=== PATIENT | female | born 2000 | race Two or more races ===

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

== ENCOUNTER 2019-03-25 13:49 | Emergency (ER) | payer OTHER ==
[~2019-03-25] VITALS: Ht 154.9 cm; Wt 47.6 kg
== END 2019-03-25 18:04 | disposition home or self-care (01) ==
LOC: ER 13:49
DX: M54.5 Low back pain (principal); M94.0 Chondrocostal junction syndrome [Tietze]

== ENCOUNTER 2024-02-12 17:31 | Emergency (ER) | payer OTHER ==
[~2024-02-12] VITALS: Ht 154.9 cm; Wt 72.6 kg
[2024-02-12] MEDS ORDERED: KETOROLAC TROMETHAMINE 30 MG VIAL IM STA (20:42)
== END 2024-02-12 20:51 | disposition home or self-care (01) ==
LOC: ER 17:32
DX: R07.89 Other chest pain (principal); Z88.0 Allergy status to penicillin

== ENCOUNTER 2024-02-28 06:53 | Outpatient (CLI) | payer OTHER | END 2024-02-28 15:01 | disposition home or self-care (01) | LOC: TOM 06:53 | DX: E28.1 Androgen excess (principal) ==

== ENCOUNTER 2024-03-16 23:42 | Emergency (ER) | payer OTHER ==
[~2024-03-16] VITALS: Ht 154.9 cm; Wt 68.9 kg
[2024-03-17] MEDS ORDERED: METOCLOPRAMIDE HCL 5 MG/ML VIAL IM STA (00:34)
[2024-03-17] MEDS ORDERED: KETOROLAC TROMETHAMINE 30 MG VIAL IV STA (00:35)
[2024-03-17] MEDS ORDERED: FAMOtidine 10 MG/ML (4ML VIAL) IV PUSH STA (00:36)
[2024-03-17] MEDS ORDERED: HYOSCYAMINE SULFATE 0.125 MG TAB.SUBL SL ONE (00:45)
== END 2024-03-17 01:11 | disposition home or self-care (01) ==
LOC: ER 23:44
DX: K21.9 Gastro-esophageal reflux disease without esophagitis (principal); K29.70 Gastritis, unspecified, without bleeding; R11.10 Vomiting, unspecified; Z88.0 Allergy status to penicillin

== ENCOUNTER 2024-03-28 21:36 | Emergency (ER) | payer OTHER ==
[~2024-03-28] VITALS: Ht 154.9 cm; Wt 68.0 kg
[2024-03-29] MEDS ORDERED: DIPHENHYDRAMINE HCL 12.5 MG/5 ML BLIST.PACK PO STA (01:08)
[2024-03-29] MEDS ORDERED: GUAIFENESIN 200 MG/10 ML BLIST.PACK PO STA (01:08)
[2024-03-29] MEDS ORDERED: ACETAMINOPHEN 500 MG GEL..CAP PO STA (01:08)
[2024-03-29 01:36] LABS: PH,URINE 5.5 (5.0-8.0); URINE APPEARANCE Clear; URINE BILIRRUBIN Negative (NEGATIVE); URINE BLOOD Trace; URINE COLOR Yellow; URINE GLUCOSE Negative (NEGATIVE); URINE KETONE Trace (NEGATIVE); URINE LEUKOCYTE Negative; URINE NITRATE Negative; URINE PROTEIN Negative (NEGATIVE)
[2024-03-29 01:40] LABS: URINE BACTERIA 3033.8 uL (0.0-1933); URINE EPITHELIAL CELLS 54.1 uL (0.0-38.8); URINE RBC 14.9 uL (0.0-20.8); URINE WBC 24.8 uL (0.0-23.2)
[2024-03-29 01:57] LABS: HEMATOCRIT 38.1 % (36.0-45.00); HEMOGLOBIN 13.2 g/dL (12.0-15.00); MEAN CELL VOLUME 83.4 fL (80.00-100.00); MEAN CORPUSCULAR HEMOGLOBIN 28.8 pg (27.00-32.0); MEAN CORPUSCULAR HGB CONC 34.6 g/dl (32.0-36.0); PLATELET COUNT 281 K/uL (150-450); RED BLOOD COUNT 4.57 M/uL (4.00-6.00); RED CELL DISTRIBUTION WIDTH 13.1 % (11.5-14.5)
[2024-03-29] MEDS ORDERED: OSEL75CA PO (05:08)
[2024-03-29] MEDS ORDERED: CIPRO250 MG PO (05:08)
[2024-03-29] MEDS ORDERED: PHENAGIL TABLE1 EACH PO (05:08)
[2024-03-29] MEDS ORDERED: ZYNCOF 20-400120 ML PO (05:08)
[2024-03-29] MEDS ORDERED: ALBUTEROL2.5 MG/3 M IH ×2 (05:12→05:13)
== END 2024-03-29 05:16 ==
LOC: ER 21:38
PROVIDERS: General Practice
DX: R30.0 Dysuria (principal); R53.81 Other malaise; Z20.822 Contact with and (suspected) exposure to COVID-19; Z88.0 Allergy status to penicillin

== ENCOUNTER 2024-05-31 07:38 | Outpatient (CLI) | payer OTHER ==
[~2024-05-31 07:38] MED LIST changes: +ALBUTEROL2.5 MG/3 M IH; +CIPRO250 MG PO; +OSEL75CA PO; +PHENAGIL TABLE1 EACH PO; +ZYNCOF 20-400120 ML PO
== END 2024-05-31 07:46 | disposition home or self-care (01) ==
LOC: SONOGRAMA 07:38
PROVIDERS: ATTEND Internal Medicine Endocrinology, Diabetes & Metabolism
DX: E04.2 Nontoxic multinodular goiter (principal)

== ENCOUNTER 2024-06-08 12:18 | Outpatient (CLI) | payer OTHER | END 2024-06-08 12:30 | disposition home or self-care (01) | LOC: RAD 12:18 | PROVIDERS: ATTEND General Practice | DX: N39.0 Urinary tract infection, site not specified (principal); Z13.0 Encounter for screening for diseases of the blood and blood-forming organs and certain disorders involving the immune mechanism; Z13.1 Encounter for screening for diabetes mellitus; Z13.220 Encounter for screening for lipoid disorders; Z13.29 Encounter for screening for other suspected endocrine disorder; E78.2 Mixed hyperlipidemia; E16.2 Hypoglycemia, unspecified; H81.10 Benign paroxysmal vertigo, unspecified ear; E22.1 Hyperprolactinemia; E21.0 Primary hyperparathyroidism ==

== ENCOUNTER 2024-06-09 08:21 | Outpatient (CLI) | payer OTHER | END 2024-06-09 08:42 | disposition home or self-care (01) | LOC: MRI 08:21 | PROVIDERS: ATTEND General Practice | DX: R42 Dizziness and giddiness (principal); R53.1 Weakness | CPT/HCPCS: 70551 ==